=== PATIENT | male | born 1940 ===

== ENCOUNTER 2023-06-17 13:00 | Inpatient (IN) | payer OTHER ==
[~2023-06-17] VITALS: Ht 167.6 cm; Wt 68.5 kg
[2023-06-18] MEDS ORDERED: GLUMETZA500 MG PO (09:15)
[2023-06-18] MEDS ORDERED: ALTACE5 MG PO (09:15)
[2023-06-18] MEDS ORDERED: ATENOLOL50 MG PO (09:16)
[2023-06-18] MEDS ORDERED: TIROSINT88 MCG PO (09:16)
[2023-06-18] MEDS ORDERED: VITAMIN D3 PO (09:17)
[2023-06-23] MEDS ORDERED: ATORVASTATIN CA10 MG (14:52)
[2023-06-23] MEDS ORDERED: VITAMIN D350 MCG (14:54)
== END 2023-06-25 11:49 | disposition home or self-care (01) | DRG 331 ==
LOC: O/R 06-23 05:25 → SURH 06-23 05:25
PROVIDERS: ADMIT Surgery; ATTEND Surgery
PROC: 0DB84ZZ Excision of Small Intestine, Percutaneous Endoscopic Approach (ICD-10-PCS; principal; 2023-06-23 16:30)
DX: C17.2 Malignant neoplasm of ileum (principal); K63.89 Other specified diseases of intestine